=== PATIENT | male | born 1940 | race African-American/Black ===

== ENCOUNTER 2018-04-09 10:25 | Inpatient (IN) | payer MEDICARE, MEDICAID ==
[~2018-04-09] VITALS: Ht 185.4 cm; Wt 91.7 kg
[~2018-04-09 10:25] MED LIST: AMLO10TA80 PO; ENAL10TA PO; HYDR25TA PO; ROSU10TA PO
[2018-04-09 12:22] VITALS: BP 143/75
[2018-04-09] MEDS ORDERED: GENTAMICIN/NS IRRIGATION 500 ML IR ONE (12:39)
[2018-04-09] MEDS ORDERED: IOHEXOL-300 100 ML BOTTLE ONE (12:39)
[2018-04-09] MEDS ORDERED: LIDOCAINE HCL 1% 20ML VIAL (Pyxis) INJ ONE (12:39)
[2018-04-09] MEDS ORDERED: GENTAMICIN SULF 40MG/ML 2ML VIAL ONE (12:39)
[2018-04-09 12:43] LABS: BASOPHILS % 0.8 % (0.0-2.0); EOSINOPHILS % 0.7 % (0.0-5.0); HEMOGLOBIN. 16.2 g/dL (14.0-18.0); LYMPHOCYTES % 19.5 % (20.0-50.0); MEAN CORPUSCULAR HEMOGLOBIN 31.8 pg (28.0-32.0); MEAN CORPUSCULAR VOLUME 94.3 fL (80.0-94.0); MEAN PLATELET VOLUME 8.2 fl (7.4-10.4); MONOCYTES % 8.6 % (2.0-8.0); NEUTROPHILS % 70.4 % (40.0-76.0); PLATELET 194 x1000/uL (130-400); RED BLOOD CELL COUNT 5.09 mill/uL (4.7-6.1)
[2018-04-09 12:52] LABS: PROTHROMBIN TIME 10.4 sec (9.1-11.1)
[2018-04-09] MEDS ORDERED: NEOSTIGMINE METHYLSULFATE 1MG/ML 10 ML VIAL ONE (13:23)
[2018-04-09] MEDS ORDERED: ROCURONIUM BROMIDE 10MG/ML VIAL 5ML IV ONE (13:23)
[2018-04-09] MEDS ORDERED: PROPOFOL 200MG/20ML VIAL IV ONE (13:23)
[2018-04-09] MEDS ORDERED: FENTANYL CITRATE/PF 50MCG/ML 2ML VIAL ONE (13:23)
[2018-04-09] MEDS ORDERED: MIDAZOLAM HCL 2 MG/2 ML VIAL ONE ×2 (13:23→13:46)
[2018-04-09] MEDS ORDERED: METOCLOPRAMIDE HCL 10MG/2ML VIAL ONE (13:24)
[2018-04-09] MEDS ORDERED: SUCCINYLCHOLINE CHLORIDE 200MG/10ML IV ONE (13:24)
[2018-04-09] MEDS ORDERED: SODIUM CHLORIDE 0.9% 10ML VIAL ONE (13:24)
[2018-04-09] MEDS ORDERED: CEFAZOLIN SODIUM 1000MG/VIAL ONE (13:24)
[2018-04-09] MEDS ORDERED: GLYCOPYRROLATE 0.2 MG/ML 2ML VIAL ONE (13:24)
[2018-04-09] MEDS ORDERED: PHENYLEPHRINE HCL 10 MG/ML 1ML (IV VIAL) IV ONE (13:24)
[2018-04-09] MEDS ORDERED: EPHEDRINE SULFATE 50MG/ML VIAL ONE (13:24)
[2018-04-09] MEDS ORDERED: ONDANSETRON HCL 4MG/2ML INJ ONE (13:24)
[2018-04-09] MEDS ORDERED: PROPOFOL 10MG/ML 100ML 100 ML IV ONE (13:35)
[2018-04-09] MEDS ORDERED: HYDROCODONE/ACETAMINOPHEN 5/325MG TABLET PO PRN (15:15)
[2018-04-09 16:00] VITALS: BP 135/78
[2018-04-09 16:30] VITALS: BP 143/81
[2018-04-09 18:00] VITALS: BP 162/76
[2018-04-09] MEDS ORDERED: ROSU10TA25 MT (18:09)
[2018-04-09] MEDS ORDERED: AMLO10TA4 MT (18:09)
[2018-04-09] MEDS ORDERED: ENAL10TA MT (18:09)
[2018-04-09] MEDS ORDERED: HYDR25TA MT (18:09)
[2018-04-09] MEDS ORDERED: TRAV2.5D EACHEYE (18:09)
[2018-04-09] MEDS ORDERED: ASPI-1160 MT (18:09)
[2018-04-09 20:00] VITALS: BP 113/61
[2018-04-09 22:00] VITALS: BP 112/65
[2018-04-10] VITALS (13 sets, daily range): BP systolic 117–161; BP diastolic 46–99
[2018-04-10 07:06] LABS: BASOPHILS % 0.8 % (0.0-2.0); EOSINOPHILS % 4.4 % (0.0-5.0); HEMATOCRIT. 44.9 % (42.0-52.0); HEMOGLOBIN. 15.3 g/dL (14.0-18.0); LYMPHOCYTES % 22.2 % (20.0-50.0); MEAN CORPUSCULAR VOLUME 94.1 fL (80.0-94.0); MEAN PLATELET VOLUME 8.4 fl (7.4-10.4); MONOCYTES % 8.7 % (2.0-8.0); NEUTROPHILS % 63.9 % (40.0-76.0); PLATELET 169 x1000/uL (130-400); RED BLOOD CELL COUNT 4.77 mill/uL (4.7-6.1)
[2018-04-10] MEDS: AMLODIPINE 10MG TABLET PO SCH (08:15)
[2018-04-11 00:01] VITALS: BP 136/81
[2018-04-11 02:00] VITALS: BP 126/80
[2018-04-11 04:00] VITALS: BP 142/81
[2018-04-11 08:00] VITALS: BP 144/77
[2018-04-11] MEDS: AMLODIPINE 10MG TABLET PO SCH (08:03)
[2018-04-11 10:00] VITALS: BP 132/76
[2018-04-11 10:23] VITALS: BP 132/76
== END 2018-04-11 12:00 | disposition home or self-care (01) | DRG 244 ==
LOC: EDSTATUS 10:25 → 3WST 10:40
PROVIDERS: ADMIT Specialist; ATTEND Specialist
PROC: B5171ZZ Fluoroscopy of Left Subclavian Vein using Low Osmolar Contrast (ICD-10-PCS; principal; 2018-04-09)
PROC: 0JH606Z Insertion of Pacemaker, Dual Chamber into Chest Subcutaneous Tissue and Fascia, Open Approach (ICD-10-PCS; 2018-04-09)
PROC: 02H63JZ Insertion of Pacemaker Lead into Right Atrium, Percutaneous Approach (ICD-10-PCS; 2018-04-09)
PROC: 02HK3JZ Insertion of Pacemaker Lead into Right Ventricle, Percutaneous Approach (ICD-10-PCS; 2018-04-09)
DX: I44.2 Atrioventricular block, complete (principal); I25.10 Atherosclerotic heart disease of native coronary artery without angina pectoris; M51.26 Other intervertebral disc displacement, lumbar region; I11.9 Hypertensive heart disease without heart failure; E78.5 Hyperlipidemia, unspecified; Z87.891 Personal history of nicotine dependence; Z79.899 Other long term (current) drug therapy
CPT/HCPCS: 33208; 36415; 71045; 75820; 80048; 83735; 93005; A4216; A4565; C1785; C1892; C1893; C1898; J0330; J0690; J1580; J2250; J2370; J2405; J2704; J2710; J2765; J3010; J3490; J7050; Q9967